=== PATIENT | female | born 1990 | race Hispanic/Latino ===

== ENCOUNTER 2022-03-18 16:58 | Inpatient (IN) | payer OTHER, SELFPAY ==
[2022-03-18 17:42] VITALS: BMI 37.0
[2022-03-18] MEDS ORDERED: hydrALAZINE 20 MG/ML VIAL SLOW IVP PRN ×2 (18:37→20:58)
[2022-03-18 19:00] LABS: Hemoglobin 11.5 g/dL (12.0-15.5); Mean Corpuscular Hemoglobin 27.9 pg (27.0-33.0); Mean Corpuscular Volume 84.7 fl (81.6-98.3); Mean Platelet Volume 10.5 fl (7.4-10.4); Platelet Count 245 10x3/uL (150-450); RBC Distribution Width 15.7 % (11.5-14.5); Red Blood Cell (RBC) Count 4.12 10x6/uL (3.90-5.03); White Blood Cell (WBC) Count 9.4 10x3/uL (3.5-10.5)
[2022-03-18 19:11] LABS: ALT (SGPT) 6 U/L (8-55); AST (SGOT) 12 U/L (5-34); Albumin 3.3 g/dL (3.5-5.0); Alkaline Phosphatase 109 U/L (40-110); Anion Gap 10 mmol/L (10-20); BUN (Urea Nitrogen) 6 mg/dL (7.0-18.7); Bilirubin, Total 0.3 mg/dL (0.2-1.2); Calc. Creatinine Clearance 174 mL/min (70-130); Calcium 9.2 mg/dL (7.8-10.44); Carbon Dioxide 22 mmol/L (22-29); Chloride 106 mmol/L (98-107); Globulin 3.3 g/dL (2.4-3.5); Glucose 92 mg/dL (70-105); Potassium 3.8 mmol/L (3.5-5.1); Protein, Total 6.6 g/dL (6.0-8.3); Sodium 134 mmol/L (136-145)
[2022-03-18 19:54] LABS: Creatinine, Urine 61.94 mg/dL (47-110)
[2022-03-18] MEDS ORDERED: Magnesium Sulfate 20 gm/500 ml 20 GM/500 ML BAG ONE (20:52)
[2022-03-18] MEDS ORDERED: Calcium Gluc 4.6 MEQ/10 ML (100 MG/ML) SLOW IVP PRN (20:58)
[2022-03-18] MEDS ORDERED: Butorphanol Tartrate 1 MG/ML VIAL SLOW IVP PRN (20:58)
[2022-03-18] MEDS ORDERED: Ibuprofen 800 MG TAB PO PRN (20:58)
[2022-03-18] MEDS ORDERED: Lidocaine 1% (PF) 30 ML VIAL SC PRN (20:58)
[2022-03-18] MEDS ORDERED: Promethazine HCl 25 MG/ML VIAL IM PRN (20:58)
[2022-03-18] MEDS ORDERED: Ondansetron PF 4 MG/2 ML Vial IVP PRN (20:58)
[2022-03-18] MEDS ORDERED: Carboprost 250 MCG/ML AMP IM PRN (20:58)
[2022-03-18] MEDS ORDERED: Misoprostol 200 MCG TAB PR PRN (20:58)
[2022-03-18] MEDS ORDERED: Diphenoxylate HCl/Atropine Tablet PO PRN (20:58)
[2022-03-18] MEDS ORDERED: Lorazepam 2 MG/ML VIAL SLOW IVP PRN (20:58)
[2022-03-18] MEDS ORDERED: HYDROcodone/Acetaminophen 5/325 mg Tablet PO PRN ×2 (20:58)
[2022-03-18] MEDS ORDERED: NS w/ Oxytocin 30 units 500 ML IV SCH ×2 (21:00→22:00)
[2022-03-18] MEDS ORDERED: Magnesium Sulfate 20 GM/WATER 500 ML BAG IVPB SCH (21:15)
[2022-03-18 21:42] LABS: Hemoglobin 11.9 g/dL (12.0-15.5); Mean Corpuscular HGB CONC 33.2 g/dL (32.0-36.0); Mean Corpuscular Hemoglobin 27.4 pg (27.0-33.0); Mean Corpuscular Volume 82.3 fl (81.6-98.3); Mean Platelet Volume 10.9 fl (7.4-10.4); Platelet Count 261 10x3/uL (150-450); RBC Distribution Width 15.9 % (11.5-14.5); Red Blood Cell (RBC) Count 4.35 10x6/uL (3.90-5.03); White Blood Cell (WBC) Count 9.4 10x3/uL (3.5-10.5)
[2022-03-18] MEDS ORDERED: Penicillin G Potassium 5 MILL.UNITS VIAL ONE (21:58)
[2022-03-18] MEDS ORDERED: Penicillin G Potassium 5 MILL.UNITS in Sodium Chloride 0.9% 100 ML IVPB SCH (22:00)
[2022-03-18] MEDS: Misoprostol 100 MCG TAB VAG SCH (22:04)
[2022-03-18 22:13] LABS: Hep B Surf Ag Non-Reactive S/CO (NonReactive); Syphilis Antibody Nonreactive (Nonreactive); Syphilis Antibody Index 0.07 S/CO (<1.00 Non-Reactive)
[2022-03-18 22:16] LABS: HBSAg Index 0.14 S/CO (0-0.99)
[2022-03-18] MEDS: Acetaminophen 500 MG TAB PO PRN (23:05)
[2022-03-19] MEDS: Misoprostol 100 MCG TAB VAG SCH ×3 (02:40→15:06)
[2022-03-19] MEDS: Penicillin G 2.5 MILL.units 2.5 MILL.UNITS in Premix Bag 1 BAG IVPB SCH ×4 (02:41→16:05)
[2022-03-19] MEDS: Magnesium Sulfate 20 gm/500 ml 20 GM/500 ML BAG IVPB SCH ×2 (06:14→16:05)
[2022-03-19] MEDS: Lactated Ringer's 1,000 ML IV SCH ×3 (08:24→16:05)
[2022-03-19] MEDS: Acetaminophen 500 MG TAB PO PRN (08:35)
[2022-03-19] MEDS ORDERED: NS w/ Oxytocin 30 units 500 ML ONE (13:48)
[2022-03-19] MEDS ORDERED: Fentanyl 2 mcg/Bup 0.1% Cadd 100 ML ONE (14:29)
[2022-03-19] MEDS ORDERED: Acetaminophen 325 MG TAB PO PRN (15:19)
[2022-03-19] MEDS ORDERED: Naloxone HCl 0.4 mg/ml Vial IVP PRN ×2 (15:19)
[2022-03-19] MEDS ORDERED: Lactated Ringer's 500 ML IV PRN (15:19)
[2022-03-19] MEDS ORDERED: diphenhydrAMINE 50 MG/ML VIAL IVP PRN (15:19)
[2022-03-19] MEDS ORDERED: ePHEDrine Sulfate 50 MG/10 ML VIAL SLOW IVP PRN (15:19)
[2022-03-19] MEDS ORDERED: Promethazine HCl 25 MG/ML VIAL IM PRN (15:19)
[2022-03-19] MEDS ORDERED: Ondansetron PF 4 MG/2 ML Vial IVP PRN (15:19)
[2022-03-19] MEDS ORDERED: Hydrocerin (Eucerin) Cream 120 gm Jar TOP PRN (15:19)
[2022-03-19] MEDS ORDERED: Fentanyl 2 mcg/Bupivacaine 0.1% Cassette 100 ML EPIDURAL SCH (15:30)
[2022-03-19] MEDS ORDERED: Communication Order-Pharmacy FS SCH (15:30)
[2022-03-19 23:13] LABS: SARS-CoV-2 PCR by NAA Not Detected (NotDetected)
[2022-03-20] MEDS ORDERED: Ibuprofen 800 MG TAB PO PRN (00:25)
[2022-03-20] MEDS: Magnesium Sulfate 20 gm/500 ml 20 GM/500 ML BAG IVPB SCH ×2 (04:08→15:10)
[2022-03-20] MEDS ORDERED: ePHEDrine Sulfate 50 MG/10 ML VIAL ONE (08:00)
[2022-03-20] MEDS ORDERED: Bupivacaine 0.25% HCL 30 ML VIAL ONE (08:00)
[2022-03-20] MEDS ORDERED: Misoprostol 200 MCG TAB VAG PRN (09:29)
[2022-03-20] MEDS ORDERED: HYDROcodone/Acetaminophen 5/325 mg Tablet PO PRN (09:29)
[2022-03-20] MEDS ORDERED: NS w/ Oxytocin 30 units 500 ML IV SCH (09:29)
[2022-03-20] MEDS ORDERED: Milk Of Magnesia 30 ML UDCUP PO PRN (09:29)
[2022-03-20] MEDS ORDERED: Bisacodyl 10 MG SUPP PR PRN (09:29)
[2022-03-20] MEDS ORDERED: hydrALAZINE 20 MG/ML VIAL SLOW IVP PRN (09:29)
[2022-03-20] MEDS ORDERED: Benzocaine-Menthol 82.5 ML CAN TOP PRN (09:29)
[2022-03-20] MEDS ORDERED: Lanolin Ointment 7 GM TUBE TOP PRN (09:29)
[2022-03-20] MEDS ORDERED: Ondansetron PF 4 MG/2 ML Vial IVP PRN (09:29)
[2022-03-20] MEDS: Ibuprofen 800 MG TAB PO SCH ×2 (09:40→18:08)
[2022-03-20] MEDS ORDERED: Ferrous Sulfate 325 MG TAB PO SCH (09:45)
[2022-03-20] MEDS ORDERED: Docusate 100 MG CAP PO SCH (09:45)
[2022-03-21] MEDS: Ibuprofen 800 MG TAB PO SCH ×3 (01:36→18:03)
[2022-03-21] MEDS: Docusate 100 MG CAP PO SCH ×3 (01:36→21:09)
[2022-03-21] MEDS: Ferrous Sulfate 325 MG TAB PO SCH ×2 (08:48→18:03)
[2022-03-21] MEDS ORDERED: NIFEdipine XL 30 MG TAB PO SCH (10:45)
[2022-03-21] MEDS: HYDROcodone/Acetaminophen 5/325 mg Tablet PO PRN ×2 (13:29→21:09)
[2022-03-22] MEDS: Ibuprofen 800 MG TAB PO SCH ×2 (02:05→09:48)
[2022-03-22] MEDS ORDERED: NIFEdipine XL 30 MG TAB PO SCH (09:00)
[2022-03-22] MEDS: Docusate 100 MG CAP PO SCH (09:46)
[2022-03-22] MEDS: Ferrous Sulfate 325 MG TAB PO SCH (09:47)
[2022-03-22 11:26] VITALS: BP 119/78; TEMP 98.1
== END 2022-03-22 13:05 | disposition home or self-care (01) | DRG 807 ==
LOC: CSHLD/OP 16:58 → CSHLD 21:12 → CSHPP 03-20 21:30
PROVIDERS: ADMIT Student in an Organized Health Care Education/Training Program; ATTEND Student in an Organized Health Care Education/Training Program
PROC: 10E0XZZ Delivery of Products of Conception, External Approach (ICD-10-PCS; principal; 2022-03-19)
PROC: 0KQM0ZZ Repair Perineum Muscle, Open Approach (ICD-10-PCS; 2022-03-19)
PROC: 10907ZC Drainage of Amniotic Fluid, Therapeutic from Products of Conception, Via Natural or Artificial Opening (ICD-10-PCS; 2022-03-19)
DX: O14.94 Unspecified pre-eclampsia, complicating childbirth (principal); Z37.0 Single live birth; O70.1 Second degree perineal laceration during delivery; Z20.822 Contact with and (suspected) exposure to COVID-19; O32.6XX0 Maternal care for compound presentation, not applicable or unspecified; Z3A.36 36 weeks gestation of pregnancy
CPT/HCPCS: 36415; 51702; 80053; 82570; 84156; 85027; 86780; 86850; 86900; 86901; 87340; 99285; J2540; J2590; J3475; J7120; S0020; U0003; U0005

== ENCOUNTER 2023-08-29 09:32 | Inpatient (IN) | payer SELFPAY ==
[2023-08-29] MEDS ORDERED: Lidocaine 1% (PF) 30 ML VIAL ONE (09:54)
[2023-08-29] MEDS ORDERED: traMADol HCl 50 MG TAB PO PRN (10:22)
[2023-08-29] MEDS ORDERED: hydrALAZINE 20 MG/ML VIAL SLOW IVP PRN (10:22)
[2023-08-29] MEDS ORDERED: Ondansetron PF 4 MG/2 ML Vial IVP PRN (10:22)
[2023-08-29] MEDS ORDERED: Boostrix 0.5 ML (Tdap) VIAL (>/=7 yrs of age) IM ONE (10:22)
[2023-08-29] MEDS ORDERED: Bisacodyl 10 MG SUPP PR PRN (10:22)
[2023-08-29] MEDS ORDERED: Milk Of Magnesia 30 ML UDCUP PO PRN (10:22)
[2023-08-29 10:40] LABS: #Basophils 0.1 10x3/uL (0.0-0.2); #Eosinphils 0.1 10x3/uL (0.0-0.5); #Monocytes 0.7 10x3/uL (0.0-1.1); #Neutrophils 8.4 10x3/uL (1.5-8.4); %Basophils 0.4 % (0.0-2.0); %Eosinophils 0.6 % (0.0-6.0); %Monocytes 5.5 % (0.0-10.0); %Neutrophils 67.6 % (40.0-75.0); Hematocrit 40.9 % (34.9-44.5); Hemoglobin 13.1 g/dL (12.0-15.5); Mean Corpuscular Hemoglobin 25.3 pg (27.0-33.0); Mean Corpuscular Volume 79.1 fl (81.6-98.3); Mean Platelet Volume 10.1 fl (7.4-10.4); Platelet Count 306 10x3/uL (150-450); RBC Distribution Width 15.4 % (11.5-14.5); Red Blood Cell (RBC) Count 5.17 10x6/uL (3.90-5.03); White Blood Cell (WBC) Count 12.4 10x3/uL (3.5-10.5)
[2023-08-29] MEDS ORDERED: Oxytocin 10 UNITS/ML VIAL IM SCH (11:00)
[2023-08-29 11:11] LABS: Syphilis Antibody Nonreactive (Nonreactive); Syphilis Antibody Index 0.07 S/CO (<1.00 Non-Reactive)
[2023-08-29 11:14] LABS: HBSAg Index 0.15 S/CO (0-0.99); HIV (1/2) Antibody/Antigen Non-Reactive (NonReactive); HIV 1/2 INDEX 0.06 S/CO (<1.00); Hep B Surf Ag - L&D Non-Reactive S/CO (NonReactive)
[2023-08-29 13:11] VITALS: BMI 36.3
[2023-08-29] MEDS: Acetaminophen 500 MG TAB PO SCH ×2 (14:50→22:03)
[2023-08-29] MEDS ORDERED: Ferrous Sulfate 325 MG TAB PO SCH (17:00)
[2023-08-29] MEDS: Docusate 100 MG CAP PO SCH (22:03)
[2023-08-29] MEDS: Ibuprofen 800 MG TAB PO SCH (22:03)
[2023-08-30] MEDS: Acetaminophen 500 MG TAB PO SCH ×2 (05:12→05:24)
[2023-08-30] MEDS: Ibuprofen 800 MG TAB PO SCH ×3 (05:12→14:44)
[2023-08-30] MEDS: Docusate 100 MG CAP PO SCH (09:18)
[2023-08-30 10:53] VITALS: BP 128/71; TEMP 97.7
== END 2023-08-30 18:25 | disposition home or self-care (01) | DRG 807 ==
LOC: CSHLD/OP 09:32 → CSHLD 10:00 → CSHANTE 20:05
PROVIDERS: ADMIT Obstetrics & Gynecology; ATTEND Obstetrics & Gynecology
PROC: 10E0XZZ Delivery of Products of Conception, External Approach (ICD-10-PCS; principal; 2023-08-29)
PROC: 0HQ9XZZ Repair Perineum Skin, External Approach (ICD-10-PCS; 2023-08-29)
DX: O24.420 Gestational diabetes mellitus in childbirth, diet controlled (principal); Z37.0 Single live birth; Z3A.39 39 weeks gestation of pregnancy; O70.0 First degree perineal laceration during delivery; O99.52 Diseases of the respiratory system complicating childbirth; J45.909 Unspecified asthma, uncomplicated
CPT/HCPCS: 85025; 86780; 86850; 86900; 86901; 87340; 87389; 99285; J2001